=== PATIENT | male | born 1935 | race Caucasian/White ===

== ENCOUNTER 2016-04-21 09:05 | Emergency (ER) | payer OTHER ==
[2016-04-21 09:16] VITALS: BMI 23.1
[2016-04-21] MEDS ORDERED: MECLIZINE HCL 25 MG TABLET (FP) PO ONE (09:26)
[2016-04-21] MEDS ORDERED: SODIUM CHLORIDE 1,000 ML IV SCH (09:30)
--- NOTE | 2016-04-21 09:32 | PDOC ---
History of Present Illness - General Chief Complaint: Lightheaded Stated Complaint: VERTIGO Time Seen by Provider: 04/21/16 09:11 - History of Present Illness Initial Comments: 04/21/16 09:27 80-year-old male with a past medical history of AODM, hyperlipidemia, CAD, CABG , stents Of note he is on aspirin and Plavix Patient states that this a.m. he awakened with severe vertigo, and a sensation of the room spinning, and some pressure in his head He states he was fine when he went to bed last night He denies any recent URI or earache He does admit to a few days of some mild intermittent diarrhea, and heartburn, but no vomiting He denies any fevers or chills He denies any syncope or presyncope He denies any focal neuro complaints He denies any visual changes He states that 3 years ago, he did have a bad episode of vertigo after air travel, but states he has not traveled recently He states he gets very dizzy with change in position, but he is okay when he is laying flat He did drive himself to the emergency department He denies any other complaints at this time, the remainder of the review of systems is negative Past History - Past Medical History Allergies/Adverse Reactions: Allergies Allergy/AdvReac Type Severity Reaction Status Date / Time No Known Allergies Allergy Verified 05/05/11 08:40 Home Medications: Ambulatory Orders Clopidogrel Bisulfate [Plavix -] 75 mg PO HS 05/15/12 Metoprolol Succinate [Toprol XL -] 25 mg PO DAILY 05/15/12 Ramipril [Altace] 2.5 mg PO DAILY 05/15/12 Metformin Xr [Glucophage Xr -] 500 mg PO BID 07/16/13 Polyethylene Glycol 3350 [Miralax 255 gm Btl -] 17 gm PO PRN PRN 07/16/13 Multivitamin W-Minerals/Lutein [Centrum Silver Tablet] 1 each PO DAILY tablet 08/24/13 Atorvastatin Calcium 40 mg PO DAILY tablet 10/31/14 Tamsulosin HCl 0.4 mg PO DAILY capsule 05/23/15 Aspirin Coated [Ecotrin -] 81 mg PO DAILY 04/21/16 Meclizine HCl [Antivert -] 25 mg PO TID PRN #21 tablet 04/21/16 Sildenafil Citrate [Viagra] 50 mg PO ASDIR PRN 04/21/16 Anemia: No Asthma: No Cancer: No Cardiac Disorders: Yes (QUINTUPLE BYPASS 2003) CVA: No COPD: No CHF: No Dementia: No Diabetes: Yes (DIET CONTROL) GI Disorders: No Disorders: No HTN: Yes Hypercholesterolemia: Yes Liver Disease: No Seizures: No Thyroid Disease: No - Surgical History Abdominal Surgery: No Appendectomy: No Cardiac Surgery: Yes (QUINTUPLE BYPASS 6 YRS AGO) Cholecystectomy: No Lung Surgery: No Neurologic Surgery: No Orthopedic Surgery: No - Psycho/Social/Smoking Cessation Hx Anxiety: No Suicidal Ideation: No Smoking Status: No Smoking History: Former smoker Have you smoked in the past 12 months: No Number of Cigarettes Smoked Daily: 0 If you are a former smoker, when did you quit?: 40 YRS AGO Information on smoking cessation initiated: No Hx Alcohol Use: No Drug/Substance Use Hx: No Substance Use Type: Alcohol Hx Substance Use Treatment: No Review of Systems - Review of Systems Able to Perform ROS?: Yes Comments:: 04/21/16 09:29 12 point review of systems is as per history of present illness and otherwise negative *Physical Exam - Vital Signs Last Vital Signs Temp Pulse Resp BP Pulse Ox 52 L 16 126/41 99 04/21/16 09:09 04/21/16 09:09 04/21/16 09:09 04/21/16 09:09 - Physical Exam Comments: 04/21/16 09:29 Physical exam Vital Signs - 24 hr 04/21/16 09:09 Pulse Rate 52 L Respiratory 16 Rate Blood Pressure 126/41 O2 Sat by Pulse 99 Oximetry (%) GENERAL: The patient is awake, alert, and fully oriented, and in no apparent distress. HEAD: Normal with no signs of trauma. EYES: Pupils equal, round and reactive to light, extraocular movements intact, no nystagmus is noted, sclera anicteric, conjunctiva are normal. ENT: TMs normal, nares patent, oropharynx clear without exudates. Moist mucous membranes. NECK: Normal range of motion, supple without lymphadenopathy, JVD, or masses. LUNGS: Breath sounds equal, clear to auscultation bilaterally. No wheezes, and no crackles. HEART: Regular rate and rhythm, normal S1 and S2 , 2/6 systolic murmur, which patient states he has been told he does have a heart murmur ABDOMEN: Soft, nontender, normoactive bowel sounds. No guarding, no rebound. No masses appreciated. EXTREMITIES: Normal range of motion, no edema. No clubbing or cyanosis. No cords, erythema, or tenderness. NEURO: Mental status: The patient is oriented x3. Cranial nerves: Cranial nerves II through XII are intact, there is no nystagmus Motor: The upper extremities are 5 over 5 in all muscle groups. The lower extremities are 5 over 5 in all muscle groups. Sensation: Sensation is intact to light touch throughout. Cerebellar: [id number] is normal in both upper extremities. Heel-knee- holley is normal in both lower extremities. Rapid change in head position sets off the vertigo Gait: Normal. Patient unable to heel and toe walk due to dizziness PSYCH: Normal mood, normal affect. SKIN: Warm, Dry, ED Treatment Course - LABORATORY CBC & Chemistry Diagram: 04/21/16 09:20 04/21/16 09:20 - RADIOLOGY Radiology Studies Ordered: Category Date Time Status HEAD CT WITHOUT CONTRAST [CT] Stat CT Scan 04/21/16 09:25 Ordered CHEST X-RAY PORTABLE* [RAD] Stat Radiology 04/21/16 09:26 Ordered Medical Decision Making - Medical Decision Making 04/21/16 09:31 Most likely peripheral vertigo in this patient who did have a particularly bad episode of vertigo 3 years ago He is fine at rest, but when he tries to move or turn his head he gets worse 04/21/16 09:53 EKG Sinus bradycardia 54, normal axis First degree AV block Normal QRS duration Normal QTC Nonspecific ST-T wave abnormality is noted Patient is on Toprol-XL 04/21/16 10:27 Laboratory Results - last 24 hr 04/21/16 04/21/16 04/21/16 09:20 09:20 09:20 WBC 8.3 D RBC 3.82 L Hgb 12.2 Hct 36.0 MCV 94.3 MCHC 33.9 RDW 11.7 L Plt Count 165 D MPV 8.5 Sodium 134 L Potassium 4.4 Chloride 101 Carbon Dioxide 25 Anion Gap 8 BUN 22 H Creatinine 0.8 Creat Clearance w eGFR > 60 Random Glucose 243 H D Calcium 8.9 Magnesium 1.7 L Total Bilirubin 0.7 AST 29 ALT 27 Alkaline Phosphatase 51 Creatine Kinase 111 Troponin I < 0.03 L Total Protein 6.3 L Albumin 4.3 Will replete magnesium 04/21/16 10:28 Chest x-ray-NAD 04/21/16 12:34 CT head without-NAD 04/21/16 13:47 Feeling much better after IV fluid Ambulatory to the bathroom without difficulty Heart rate in the 60s to 70s now 04/21/16 13:54 Case and all results discussed with Dr. Grewal-patient feeling much better and is ambulatory to the bathroom without difficulty We'll discharge to home with Antivert Dr. Grewal will see the patient in the office tomorrow *DC/Admit/Observation/Transfer Diagnosis at time of Disposition: Vertigo, Mild dehydration - Discharge Dispostion Disposition: HOME Condition at time of disposition: Improved - Referrals Referrals: Curtis Grewal MD [Primary Care Provider] - 24 hours - Patient Instructions Printed Discharge Instructions: Vertigo Additional Instructions: Antivert-one pill every 8 hours for her vertigo Rest, increase fluid intake Followup with your primary care physician in 24-48 hours Return immediately if you worsen in any way Take your medications as directed
[2016-04-21] MEDS ORDERED: MECLIZINE HCL 25 MG TABLET (FP) ONE (09:40)
[2016-04-21 09:48] LABS: MCH 31.9 pg (25.7-33.7); MCHC 33.9 g/dl (32.0-35.9); MEAN CELL VOLUME 94.3 fl (80-96); MEAN PLT VOLUME 8.5 fl (7.5-11.1); PLATELET COUNT 165 K/MM3 (134-434); RDW 11.7 % (11.9-15.9); WHITE BLOOD COUNT 8.3 K/mm3 (4.0-10.0)
[2016-04-21 10:02] LABS: ALBUMIN 4.3 g/dl (3.5-5.0); ALK PHOS 51 U/L (32-92); ANION GAP 8 (8-16); BILIRUBIN,TOTAL 0.7 mg/dl (0.2-1.0); CALCIUM 8.9 mg/dl (8.4-10.2); CO2 25 mmol/L (22-28); CREATININE 0.8 mg/dl (0.6-1.3); GLUCOSE,RANDOM 243 mg/dl (74-106); MAGNESIUM 1.7 mg/dL (1.8-2.4); SGOT/AST 29 U/L (10-42); SGPT/ALT 27 U/L (10-40); TOT PROT 6.3 g/dl (6.4-8.3)
[2016-04-21 10:03] LABS: CPK(DFH) 111 IU/L (38-174)
[2016-04-21 10:23] LABS: TROPONIN I (DFP) < 0.03 ng/ml (0.03-0.50)
[2016-04-21] MEDS ORDERED: MAGNESIUM SULF 50% (8.12 MEQ/2 ML-1 GM VIAL) IVPB ONE (10:26)
[2016-04-21 14:24] VITALS: BP 119/56; PULSE 58
--- NOTE | 2016-04-22 16:35 | EKG ---
Test Reason : Blood Pressure : / mmHG Vent. Rate : 054 BPM Atrial Rate : 054 BPM P-R Int : 234 ms QRS Dur : 094 ms QT Int : 444 ms P-R-T Axes : 032 044 068 degrees QTc Int : 421 ms SINUS BRADYCARDIA WITH 1ST DEGREE A-V BLOCK NONSPECIFIC T WAVE ABNORMALITY ABNORMAL ECG NO PREVIOUS ECGS AVAILABLE Confirmed by NELSON RUIZ MD ([id number]) on 04/22/2016 4:35:12 PM Referred By: SHAKEEL Confirmed By:NELSON RUIZ MD
== END 2016-04-21 14:28 | disposition home or self-care (01) ==
LOC: FER 09:05
PROC: 3E033GC Introduction of Other Therapeutic Substance into Peripheral Vein, Percutaneous Approach (ICD-10-PCS; principal; 2016-04-21)
PROC: 3E0337Z Introduction of Electrolytic and Water Balance Substance into Peripheral Vein, Percutaneous Approach (ICD-10-PCS; 2016-04-21)
DX: R42 Dizziness and giddiness (principal); E86.0 Dehydration; Z79.01 Long term (current) use of anticoagulants; Z79.82 Long term (current) use of aspirin; E78.5 Hyperlipidemia, unspecified; Z95.5 Presence of coronary angioplasty implant and graft; I25.10 Atherosclerotic heart disease of native coronary artery without angina pectoris; Z95.1 Presence of aortocoronary bypass graft; Z87.891 Personal history of nicotine dependence
CPT/HCPCS: 36415; 70450-TC; 71010-TC; 80053; 82550; 83735; 84484; 85027; 93005; 96361; 96374; 99284-25

== ENCOUNTER 2016-06-12 06:40 | Day surgery (SDC) | payer OTHER ==
[2016-06-09 16:45] VITALS: BMI 23.6
[2016-06-12] MEDS ORDERED: PROPOFOL 20 ML ONE ×2 (07:25)
[2016-06-12] MEDS ORDERED: LIDOCAINE HCL/PF 2% SDV 5ML VIAL ONE (08:17)
[2016-06-12 09:34] VITALS: TEMP 97.5
[2016-06-12 09:40] VITALS: BP 130/72; PULSE 52
== END 2016-06-12 09:50 | disposition home or self-care (01) ==
LOC: FASU-ENDO 06:40
PROVIDERS: ATTEND Internal Medicine Gastroenterology
PROC: 0DJD8ZZ Inspection of Lower Intestinal Tract, Via Natural or Artificial Opening Endoscopic (ICD-10-PCS; principal; 2016-06-12 09:35)
DX: Z86.010 Personal history of colon polyps (principal); Z80.0 Family history of malignant neoplasm of digestive organs; Z83.71 Family history of colonic polyps; K57.30 Diverticulosis of large intestine without perforation or abscess without bleeding

== ENCOUNTER 2017-12-22 10:15 | Emergency (ER) | payer OTHER ==
[2017-12-22 10:33] VITALS: BP 129/55; PULSE 70; TEMP 97.6; BMI 23.3
[2017-12-22] MEDS ORDERED: diphenhydrAMINE HCL 25 MG CAPSULE (FP) PO ONE (11:01)
--- NOTE | 2017-12-22 11:04 | PDOC ---
Attending Attestation - Resident Resident Name: SaumyaAung - ED Attending Attestation I have performed the following: I have examined & evaluated the patient, The case was reviewed & discussed with the resident, I agree w/resident's findings & plan, Exceptions are as noted - HPI HPI: 12/22/17 11:45 Mr Foley is an 82 yo M h/o HTN who presents with pruritic rash x 5 daus no prior episodes like this No known arthropod bites Pt recently used abx s/p urological procedure but discontinued them prior to the progression of this rash Denies new exposures or foods. Denies camping or hiking. Denies fevers/chills Denies difficulty swallowing, wheezing - Physicial Exam PE: 12/22/17 11:50 GENERAL: Awake, alert, and fully oriented, in no acute distress EYES: PERRLA, EOMI, sclera anicteric, conjunctiva clear ENT: Uvula midline, no mucosal lesions, Moist mucosa NECK: Normal ROM, supple LUNGS: No distress, speaks full sentences, clear to auscultation bilaterally HEART:Regular rate and rhythm, normal S1 and S2, no murmurs appreciated, peripheral pulses normal and equal bilaterally ABDOMEN: Soft, nontender, normoactive bowel sounds. No guarding, no rebound. EXTREMITIES : Normal inspection, Normal range of motion NEUROLOGICAL: Cranial nerves II through XII grossly intact. Normal speech, normal gait, no focal sensorimotor deficits SKIN: Left elbow 2x2cm eczematous rash, R foot (dorsal) [id number] vesicular lesion, R medial wrist vesicular lesion 0.5x2cm - Medical Decision Making 12/22/17 11:51 82 yo M presenting with pruritic rash present for the past 5 days contact dermatitis vs. arthropod bites Will discharge to home Follow up with Dermatology within 1 week Atarax for itching Monitor for progression, worsening Discharge Disposition - Diagnosis Vesicular rash - Discharge Dispostion Disposition: HOME Condition at time of disposition: Stable Last Admission D/C Date: 05/06/06 - Prescriptions Prescriptions: hydrOXYzine HCL [Atarax -] 10 mg PO TID PRN #21 tablet PRN Reason: For Itching - Referrals Referrals: Curtis Grewal MD [Staff Physician] - Cori Rob [Staff Physician] - - Patient Instructions Printed Discharge Instructions: DI for Rash Additional Instructions: You were seen in the Emergency Room today for Rash. Please review the handout provided at discharge. Follow up with your Primary Care Provider within the next 1-3 days. Return to the Emergency Department if you experience fevers, worsening symptoms, or any new concerning symptoms. - Post Discharge Activity
--- NOTE | 2017-12-22 11:16 | PDOC ---
History of Present Illness - General Chief Complaint: Rash Stated Complaint: ITCHY RASH Time Seen by Provider: 12/22/17 11:00 - History of Present Illness Initial Comments: The patient is a 82M with a history of HTN who presents with 5 days of itching rash that he denies ever having had before. He states that the first lesion he noted was on his left elbow, then his right forearm/wrist and then the dorsal surface of his right foot. The patient states that the rash is constantly itching. Is vesicular in nature. Denies purulent discharge. Denies new exposures or foods. Denies camping or hiking. Denies fevers/chills, chest pain, SOB, abdominal pain, N/V/C. Endorses diarrhea 2/2 medication use. Denies changes in sensation. 12/22/17 11:08 Past History - Past Medical History Allergies/Adverse Reactions: Allergies Allergy/AdvReac Type Severity Reaction Status Date / Time No Known Allergies Allergy Verified 12/22/17 10:17 Home Medications: Ambulatory Orders Clopidogrel Bisulfate [Plavix -] 75 mg PO HS 05/15/12 Metoprolol Succinate [Toprol XL -] 25 mg PO DAILY 05/15/12 Ramipril [Altace] 2.5 mg PO DAILY 05/15/12 Multivitamin W-Minerals/Lutein [Centrum Silver Tablet] 1 each PO DAILY tablet 08/24/13 Atorvastatin Calcium 40 mg PO DAILY tablet 10/31/14 Sitagliptin Phos/Metformin HCl [Janumet 50-500 mg Tablet] 1 each PO DAILY Tamsulosin HCl 0.4 mg PO DAILY 12/22/17 hydrOXYzine HCL [Atarax -] 10 mg PO TID PRN #21 tablet 12/22/17 Anemia: No Asthma: No Cancer: No Cardiac Disorders: Yes (QUINTRUPLE BYPASS 2003) CVA: No COPD: No CHF: No Dementia: No Diabetes: Yes GI Disorders: No Disorders: No HTN: Yes Hypercholesterolemia: Yes Liver Disease: No Seizures: No Thyroid Disease: No Other medical history: ENLARGED PROSTATE - Surgical History Abdominal Surgery: No Appendectomy: No Cardiac Surgery: Yes (QUINTRUPLE BYPASS 6 YRS AGO) Cholecystectomy: No Lung Surgery: No Neurologic Surgery: No Orthopedic Surgery: No - Suicide/Smoking/Psychosocial Hx Smoking Status: No Smoking History: Former smoker Have you smoked in the past 12 months: No Number of Cigarettes Smoked Daily: 0 If you are a former smoker, when did you quit?: 40 YRS AGO Information on smoking cessation initiated: No Hx Alcohol Use: Yes (RARE) Drug/Substance Use Hx: No Substance Use Type: Alcohol Hx Substance Use Treatment: No Review of Systems - Review of Systems Able to Perform ROS?: Yes Comments:: GENERAL/CONSTITUTIONAL: No fever or chills. No weakness HEAD, EYES, EARS, NOSE AND THROAT: No change in vision. No ear pain or discharge. No sore throat CARDIOVASCULAR: No chest pain or shortness of breath RESPIRATORY: No cough, wheezing, or hemoptysis GASTROINTESTINAL: No nausea, vomiting, diarrhea or constipation GENITOURINARY: No dysuria, frequency, or change in urination MUSCULOSKELETAL: No joint or muscle swelling or pain. No neck or back pain SKIN: Per HPI NEUROLOGIC: No headache, vertigo, loss of consciousness, or change in strength/ sensation ENDOCRINE: No increased thirst. No abnormal weight change HEMATOLOGIC/LYMPHATIC: No anemia, easy bleeding, or history of blood clots ALLERGIC/IMMUNOLOGIC: No hives or skin allergy 12/22/17 11:16 Is the patient limited Telugu proficient: No *Physical Exam - Vital Signs Last Vital Signs Temp Pulse Resp BP Pulse Ox 97.6 F 70 16 129/55 100 12/22/17 10:16 12/22/17 10:16 12/22/17 10:16 12/22/17 10:16 12/22/17 10:16 - Physical Exam Comments: GENERAL: Awake, alert, and fully oriented, in no acute distress HEAD: No signs of trauma, normocephalic, atraumatic EYES: PERRLA, EOMI, sclera anicteric, conjunctiva clear ENT: Auricles normal inspection, hearing grossly normal, nares patent, oropharynx clear without exudates. Moist mucosa NECK: Normal ROM, supple, no lymphadenopathy LUNGS: No distress, speaks full sentences, clear to auscultation bilaterally HEART:Regular rate and rhythm, normal S1 and S2, no murmurs appreciated, peripheral pulses normal and equal bilaterally ABDOMEN: Soft, nontender, normoactive bowel sounds. No guarding, no rebound. No masses EXTREMITIES : Normal inspection, Normal range of motion, no edema. No clubbing or cyanosis NEUROLOGICAL: Cranial nerves II through XII grossly intact. Normal speech, normal gait, no focal sensorimotor deficits SKIN: Left elbow 2x2cm eczematous rash, R foot (dorsal) [id number] vesicular lesion, R medial wrist vesicular lesion 0.5x2cm 12/22/17 11:17 Medical Decision Making - Medical Decision Making The patient is a 82M with a history of HTN who presents with 5 days of itching rash that he denies ever having had before. ED Course Rx for Hydroxazine 10mg PO TID PRN for itching Dispo: Home with PCP f/u 12/22/17 11:23 *DC/Admit/Observation/Transfer Diagnosis at time of Disposition: Vesicular rash - Discharge Dispostion Disposition: HOME Condition at time of disposition: Stable Decision to Admit order: No - Prescriptions Prescriptions: hydrOXYzine HCL [Atarax -] 10 mg PO TID PRN #21 tablet PRN Reason: For Itching - Referrals Referrals: Curtis Grewal MD [Staff Physician] - - Patient Instructions Printed Discharge Instructions: DI for Rash Additional Instructions: You were seen in the Emergency Room today for Rash. Please review the handout provided at discharge. Follow up with your Primary Care Provider within the next 1-3 days. Return to the Emergency Department if you experience fevers, worsening symptoms, or any new concerning symptoms. - Post Discharge Activity
== END 2017-12-22 11:58 | disposition home or self-care (01) ==
LOC: FER 10:15
DX: R23.8 Other skin changes (principal); I10 Essential (primary) hypertension
CPT/HCPCS: 99281-25

== ENCOUNTER 2018-09-16 07:21 | Emergency (ER) | payer OTHER | END 2018-09-16 07:45 | disposition home or self-care (01) | LOC: FER 07:21 ==

== ENCOUNTER 2018-11-13 09:00 | Emergency (ER) | payer OTHER ==
--- NOTE | 2018-11-13 09:06 | PDOC ---
History of Present Illness - General Chief Complaint: Redness To Affected Area Stated Complaint: REDNESS OF PENIS Time Seen by Provider: 11/13/18 09:05 History Source: Patient Exam Limitations: No Limitations - History of Present Illness Initial Comments: 82 yo M history DM, CAD s/p CABG, HTN, HL presents with irritation, redness to the head of the penis for the past few days. He denies any discharge, dysuria, fever, chills. He denies any prior similar symptoms. Past History - Past Medical History Allergies/Adverse Reactions: Allergies Allergy/AdvReac Type Severity Reaction Status Date / Time No Known Allergies Allergy Verified 11/13/18 09:05 Home Medications: Ambulatory Orders Clopidogrel Bisulfate [Plavix -] 75 mg PO HS 05/15/12 Metoprolol Succinate [Toprol XL -] 25 mg PO DAILY 05/15/12 Ramipril [Altace] 2.5 mg PO DAILY 05/15/12 Atorvastatin Calcium 40 mg PO DAILY tablet 10/31/14 Sitagliptin Phos/Metformin HCl [Janumet 50-500 mg Tablet] 1 each PO BID Clotrimazole [Lotrimin AF] 1 applic TP BID #24 g 11/13/18 Empagliflozin [Jardiance] 10 mg PO DAILY 11/13/18 Anemia: No Asthma: No Cancer: No Cardiac Disorders: Yes (QUINTRUPLE BYPASS 2003) CVA: No COPD: No CHF: No Dementia: No Diabetes: Yes GI Disorders: No Disorders: No HTN: Yes Hypercholesterolemia: Yes Liver Disease: No Seizures: No Thyroid Disease: No - Surgical History Abdominal Surgery: No Appendectomy: No Cardiac Surgery: Yes (QUINTRUPLE BYPASS 6 YRS AGO) Cholecystectomy: No Lung Surgery: No Neurologic Surgery: No Orthopedic Surgery: No - Suicide/Smoking/Psychosocial Hx Smoking Status: No Smoking History: Former smoker Have you smoked in the past 12 months: No Number of Cigarettes Smoked Daily: 0 If you are a former smoker, when did you quit?: 40 YRS AGO Hx Alcohol Use: Yes (RARE) Drug/Substance Use Hx: No Substance Use Type: Alcohol Hx Substance Use Treatment: No Review of Systems - Review of Systems Able to Perform ROS?: Yes Comments:: GENERAL/CONSTITUTIONAL: No fever or chills. No weakness. GASTROINTESTINAL: No nausea, vomiting, diarrhea or constipation. GENITOURINARY: No dysuria, frequency, or change in urination. MUSCULOSKELETAL: No joint or muscle swelling or pain. No neck or back pain. SKIN: +Rash to head of penis *Physical Exam - Physical Exam Comments: GENERAL: Awake, alert, and fully oriented, in no acute distress : Uncircumcised. +Erythema and slight yeast-like discharge from the head of the penis. Foreskin retracts and reduces easily. No penile discharge. SKIN: Warm, dry, normal turgor, no rashes except as noted above Medical Decision Making - Medical Decision Making 11/13/18 09:17 Sxs consistent with balanitis. No signs of paraphimosis, phimosis. Will give topical antifungal. BGM 118 in ED. Stable for DC home. *DC/Admit/Observation/Transfer Diagnosis at time of Disposition: Balanitis - Discharge Dispostion Disposition: HOME Condition at time of disposition: Stable Decision to Admit order: No - Prescriptions Prescriptions: Clotrimazole [Lotrimin AF] 1 applic TP BID #24 g - Referrals Referrals: Curtis Grewal MD [Primary Care Provider] - - Patient Instructions Printed Discharge Instructions: DI for Balanitis - Post Discharge Activity
[2018-11-13 09:11] VITALS: BP 119/50; PULSE 62; TEMP 97.6; BMI 22.1
== END 2018-11-13 09:21 | disposition home or self-care (01) ==
LOC: FER 09:00
DX: N48.1 Balanitis (principal); Z87.891 Personal history of nicotine dependence; E78.00 Pure hypercholesterolemia, unspecified; I10 Essential (primary) hypertension; E11.9 Type 2 diabetes mellitus without complications; Z95.1 Presence of aortocoronary bypass graft
CPT/HCPCS: 82962; 99281-25

== ENCOUNTER 2021-09-18 12:04 | Emergency (ER) | payer OTHER ==
[2021-09-18 12:18] VITALS: BP 148/68; PULSE 75; TEMP 98.5; BMI 23.3
[2021-09-18 13:08] LABS: HEMATOCRIT 31.5 % (35.4-49); INR 1.18 (0.83-1.09); MCH 34.5 pg (25.7-33.7); MEAN CELL VOLUME 98.7 fl (80-96); MEAN PLT VOLUME 8.5 fl (7.5-11.1); PLATELET COUNT 156.5 10^3/uL (134-434); PROTHROMBIN TIME (PATIENT) 13.6 SEC (9.7-13.0); RBC 3.19 10^6/uL (4.00-5.60); RDW 13.4 % (11.9-15.9)
[2021-09-18 13:10] LABS: ACTIVATED PTT 28.7 SECONDS (25.2-36.5)
== END 2021-09-18 13:30 | disposition home or self-care (01) ==
LOC: FER 12:04
DX: H57.89 Other specified disorders of eye and adnexa (principal)
CPT/HCPCS: 36415; 85027; 85610; 85730; 99283-25

== ENCOUNTER 2022-01-03 08:40 | Emergency (ER) | payer OTHER ==
[2022-01-03] MEDS ORDERED: ACETAMINOPHEN 325 MG TABLET (FP) PO ONE (08:52)
[2022-01-03 08:55] VITALS: BP 144/66; PULSE 81; RESP 18; TEMP 98
[2022-01-03] MEDS ORDERED: ACETAMINOPHEN 325 MG TABLET (FP) ONE (08:57)
== END 2022-01-03 09:07 | disposition home or self-care (01) ==
LOC: FER 08:40
DX: S30.0XXA Contusion of lower back and pelvis, initial encounter (principal); W01.0XXA Fall on same level from slipping, tripping and stumbling without subsequent striking against object, initial encounter
CPT/HCPCS: 99283-25